=== PATIENT | male | born 1960 | race Caucasian/White ===

== ENCOUNTER 2019-07-07 07:50 | Day surgery (SDC) | payer OTHER ==
[~2019-07-07] VITALS: Ht 175.3 cm; Wt 102.6 kg
[~2019-07-07 07:50] MED LIST: ALLO300 PO; ASPI-556 PO; ATEN25TA PO; ATOR40TA28 PO; METF-960 PO; NAPR-1025 PO; SODIUM CHLORIDE 0.9% 1,000 ML IV ONE
[2019-07-07] MEDS ORDERED: LIDOCAINE/PF 2% 5 ML VIAL IM ONE (07:51)
[2019-07-07] MEDS ORDERED: PROPOFOL 1% 20 ML VIAL IVP ONE (07:51)
[2019-07-07 08:41] LABS: GLUCOMETER DEV NAME(LOC) SDS.; GLUCOSE,POINT OF CARE 75 MG/DL (70-110)
== END 2019-07-07 11:00 | disposition home or self-care (01) ==
LOC: SURGERY 07:50
PROVIDERS: ATTEND Internal Medicine Gastroenterology
DX: K57.30 Diverticulosis of large intestine without perforation or abscess without bleeding (principal); K64.8 Other hemorrhoids; I10 Essential (primary) hypertension; E11.9 Type 2 diabetes mellitus without complications; E78.5 Hyperlipidemia, unspecified; E66.9 Obesity, unspecified; M10.9 Gout, unspecified; Z79.82 Long term (current) use of aspirin; Z79.899 Other long term (current) drug therapy; Z98.890 Other specified postprocedural states
CPT/HCPCS: 45378; 82962; J2704; J3490; J7030